=== PATIENT | female | born 2000 | race Caucasian/White ===

== ENCOUNTER 2023-01-25 00:22 | Inpatient (IN) | payer OTHER ==
[2023-01-25] MEDS ORDERED: hydrALAZINE 20 MG/ML VIAL SLOW IVP PRN ×2 (01:09→19:20)
[2023-01-25] MEDS ORDERED: Ondansetron PF 4 MG/2 ML Vial IVP PRN ×2 (01:20→19:20)
[2023-01-25] MEDS ORDERED: Ondansetron PF 4 MG/2 ML Vial ONE (01:36)
[2023-01-25] MEDS ORDERED: Methylergonovine 0.2 MG/ML VIAL IM PRN ×2 (01:55→19:20)
[2023-01-25] MEDS ORDERED: Carboprost 250 MCG/ML AMP IM PRN (01:55)
[2023-01-25] MEDS ORDERED: Promethazine HCl 25 MG/ML VIAL IM PRN (01:55)
[2023-01-25] MEDS ORDERED: Misoprostol 200 MCG TAB PR PRN (01:55)
[2023-01-25] MEDS ORDERED: Ibuprofen 800 MG TAB PO PRN (01:55)
[2023-01-25] MEDS ORDERED: Tranexamic Acid 1,000 MG/10 ML VIAL IVP PRN (01:55)
[2023-01-25] MEDS ORDERED: Lidocaine 1% (PF) 30 ML VIAL SC PRN (01:55)
[2023-01-25] MEDS ORDERED: Acetaminophen 500 MG TAB PO PRN (01:55)
[2023-01-25] MEDS ORDERED: Docusate 100 MG CAP PO PRN (01:55)
[2023-01-25] MEDS ORDERED: Morphine 4 MG/ML VIAL ONE (01:57)
[2023-01-25] MEDS ORDERED: Morphine 4 MG/ML VIAL SLOW IVP SCH (02:00)
[2023-01-25] MEDS ORDERED: Penicillin G Potassium 5 MILL.UNITS in Sodium Chloride 0.9% 100 ML IVPB SCH (02:00)
[2023-01-25 02:15] LABS: Hemoglobin 12.7 g/dL (12.0-15.5); Mean Corpuscular HGB CONC 33.1 g/dL (32.0-36.0); Mean Corpuscular Hemoglobin 29.3 pg (27.0-33.0); Mean Corpuscular Volume 88.5 fl (81.6-98.3); Mean Platelet Volume 10.7 fl (7.4-10.4); Platelet Count 247 10x3/uL (150-450); RBC Distribution Width 12.7 % (11.5-14.5); Red Blood Cell (RBC) Count 4.34 10x6/uL (3.90-5.03); White Blood Cell (WBC) Count 15.3 10x3/uL (3.5-10.5)
[2023-01-25 02:27] VITALS: BMI 33.5
[2023-01-25] MEDS ORDERED: NS w/ Oxytocin 30 units 500 ML IV SCH ×3 (02:30→19:20)
[2023-01-25 02:47] LABS: Syphilis Antibody Nonreactive (Nonreactive); Syphilis Antibody Index 0.03 S/CO (<1.00 Non-Reactive)
[2023-01-25] MEDS ORDERED: Fentanyl 2 mcg/Bup 0.1% Cadd 100 ML ONE ×2 (02:47→11:14)
[2023-01-25 02:48] LABS: HBSAg Index 0.16 S/CO (0-0.99); Hep B Surf Ag - L&D Non-Reactive S/CO (NonReactive)
[2023-01-25] MEDS: Lactated Ringer's 1,000 ML IV SCH ×3 (04:44→20:13)
[2023-01-25] MEDS: Penicillin G 2.5 MILL.units 2.5 MILL.UNITS in Premix Bag 1 BAG IVPB SCH ×2 (07:57→21:02)
[2023-01-25] MEDS ORDERED: Bupivacaine/Epinephrine 0.25% 30 ML VIAL ONE (08:00)
[2023-01-25] MEDS ORDERED: Bupivacaine 0.25% HCL 30 ML VIAL ONE (08:00)
[2023-01-25] MEDS ORDERED: CEFAZOLIN 1 GM VIAL ONE (17:11)
[2023-01-25 17:39] LABS: pH (Cord, venous) 7.268 (7.250-7.350)
[2023-01-25] MEDS ORDERED: CEFAZOLIN 2 GM in Sodium Chloride 0.9% 100 ML IVPB SCH (18:00)
[2023-01-25] MEDS ORDERED: Benzocaine-Menthol 82.5 ML CAN TOP PRN (19:20)
[2023-01-25] MEDS ORDERED: HYDROcodone/Acetaminophen 5/325 mg Tablet PO PRN ×2 (19:20)
[2023-01-25] MEDS ORDERED: Lanolin Ointment 7 GM TUBE TOP PRN (19:20)
[2023-01-25] MEDS ORDERED: Bisacodyl 10 MG SUPP PR PRN (19:20)
[2023-01-25] MEDS ORDERED: Boostrix 0.5 ML (Tdap) VIAL (>/=7 yrs of age) IM ONE (19:20)
[2023-01-25] MEDS: Ibuprofen 800 MG TAB PO SCH (21:21)
[2023-01-25] MEDS: Docusate 100 MG CAP PO SCH (21:22)
[2023-01-26] MEDS: traMADol HCl 50 MG TAB PO PRN ×3 (01:42→21:42)
[2023-01-26] MEDS: Ibuprofen 800 MG TAB PO SCH ×3 (06:05→21:39)
[2023-01-26] MEDS: Ferrous Sulfate 325 MG TAB PO SCH ×2 (07:40→16:37)
[2023-01-26] MEDS: Docusate 100 MG CAP PO SCH ×2 (08:30→21:39)
[2023-01-26] MEDS: Prenatal Vitamin 1 TAB PO SCH (08:30)
[2023-01-26] MEDS: Milk Of Magnesia 30 ML UDCUP PO PRN (17:49)
[2023-01-27] MEDS: Ibuprofen 800 MG TAB PO SCH ×3 (05:00→21:50)
[2023-01-27] MEDS: Ferrous Sulfate 325 MG TAB PO SCH ×2 (09:01→15:18)
[2023-01-27] MEDS: Docusate 100 MG CAP PO SCH ×2 (09:19→21:52)
[2023-01-27] MEDS: Prenatal Vitamin 1 TAB PO SCH (09:19)
[2023-01-27] MEDS: Milk Of Magnesia 30 ML UDCUP PO PRN (14:30)
[2023-01-27] MEDS: traMADol HCl 50 MG TAB PO PRN (21:47)
[2023-01-28] MEDS: Ibuprofen 800 MG TAB PO SCH ×2 (05:01→15:56)
[2023-01-28] MEDS: Ferrous Sulfate 325 MG TAB PO SCH (07:16)
[2023-01-28 07:28] VITALS: BP 117/67; TEMP 98.1
[2023-01-28] MEDS: Prenatal Vitamin 1 TAB PO SCH (07:45)
[2023-01-28] MEDS: Docusate 100 MG CAP PO SCH (07:45)
== END 2023-01-28 16:15 | disposition home or self-care (01) | DRG 768 ==
LOC: CSHLD/OP 00:22 → CSHLD 02:13 → CSHPP 20:13
PROVIDERS: ADMIT Obstetrics & Gynecology; ATTEND Obstetrics & Gynecology
PROC: 10E0XZZ Delivery of Products of Conception, External Approach (ICD-10-PCS; principal; 2023-01-25)
PROC: 0DQR0ZZ Repair Anal Sphincter, Open Approach (ICD-10-PCS; 2023-01-25)
DX: O99.824 Streptococcus B carrier state complicating childbirth (principal); Z37.0 Single live birth; Z3A.39 39 weeks gestation of pregnancy; O70.20 Third degree perineal laceration during delivery, unspecified; O99.344 Other mental disorders complicating childbirth; F41.9 Anxiety disorder, unspecified; O77.0 Labor and delivery complicated by meconium in amniotic fluid; O69.1XX0 Labor and delivery complicated by cord around neck, with compression, not applicable or unspecified
CPT/HCPCS: 36415; 51702; 82805; 85027; 86780; 86850; 86900; 86901; 87340; 99285; J0690; J2270; J2405; J2540; S0020